=== PATIENT | male | born 1965 | race Caucasian/White ===

== ENCOUNTER 2017-12-08 19:57 | Emergency (ER) | payer OTHER ==
[~2017-12-08] VITALS: Ht 167.6 cm; Wt 90.6 kg
[2017-12-08 20:05] VITALS: BP 150/92; PULSE 97; RESP 20; TEMP 98.7; O2SAT 98
[2017-12-08] MEDS ORDERED: NORT10CA PO (20:17)
[2017-12-08] MEDS ORDERED: SUMA85TA PO (20:17)
[2017-12-08] MEDS ORDERED: LISI-515 PO (20:17)
[2017-12-08] MEDS ORDERED: HYDR-4361 (20:17)
[2017-12-08] MEDS ORDERED: SODIUM CHLOR 0.9% 1000 ML INJ 1,000 ML IV ONE (20:23)
--- NOTE | 2017-12-08 20:23 | PD ---
HPI Chief Complaint: Dizziness Time Seen by Provider: 20:19 Travel History International Travel<30 days: No Contact w/Intl Traveler<30days: No Traveled to known affect area: No History of Present Illness HPI The patient is a 52-year-old male that complains of vertigo intermittently for a week. He has frequent headaches and has a headache in the occipital area of gradual onset. He denies any focal neurologic change. He does have tingling in his hands and arms. He was vomiting today and associated with the vertigo. He denies any ear pain or tinnitus. PFSH Past Medical History Hypertension: Yes Past Surgical History Abdominal Surgery: Yes (HERNIA) Appendectomy: Yes Other Surgery: Yes (BACK AND NECK) Social History Alcohol Use: No Tobacco Use: No Substance Use: No Allergies-Medications (Allergen,Severity, Reaction): Coded Allergies: No Known Allergies (Unverified , 12/08/17) Reported Meds & Prescriptions Reported Meds & Active Scripts Active Reported Hydrocodone-Acetamin 10-300 mg (Hydrocodone/Acetaminophen) 10 Mg-300 Mg Tablet Treximet (Sumatriptan-Naproxen) 85-500 Mg Tab 1 Tab PO ONCE PRN May take a second dose after 2 hours if needed. Maximum 2 tabs in 24 hour period. Nortriptyline (Nortriptyline HCl) 10 Mg Cap 10 Mg PO HS Lisinopril 20 Mg Tab 20 Mg PO DAILY Review of Systems Except as stated in HPI: all other systems reviewed are Neg Physical Exam Narrative GENERAL: The patient is alert, oriented 3 in moderate distress with his vertigo. He holds his head completely still. His blood pressure is 150/92 but the rest the vital signs are normal. He does appear to be somewhat anxious and hyperventilating. SKIN: Focused skin assessment cool and diaphoretic. HEAD: Atraumatic. Normocephalic. EYES: Pupils equal and round. No scleral icterus. No injection or drainage. ENT: No nasal bleeding or discharge. Mucous membranes pink and moist. The right tympanic membrane is not seen due to wax in the canal. The left tympanic membrane and canal are normal. Lateral nystagmus is present with any head movement. NECK: Trachea midline. No JVD. There is no meningismus present. CARDIOVASCULAR: Regular rate and rhythm. No murmur appreciated. RESPIRATORY: No accessory muscle use. Clear to auscultation. Breath sounds equal bilaterally. GASTROINTESTINAL: Abdomen soft, non-tender, nondistended. Hepatic and splenic margins not palpable. MUSCULOSKELETAL: No obvious deformities. No clubbing. No cyanosis. No edema. NEUROLOGICAL: Awake and alert. No obvious cranial nerve deficits. Motor grossly within normal limits. Normal speech. PSYCHIATRIC: Appropriate mood and affect; insight and judgment normal. Data Data Last Documented VS Vital Signs Date Time Temp Pulse Resp B/P (MAP) Pulse Ox O2 Delivery O2 Flow Rate FiO2 12/08/17 21:31 99 16 150/89 (109) 94 Nasal Cannula 4.00 12/08/17 20:05 98.7 Orders Orders Lorazepam Inj (Ativan Inj) (12/08/17 20:30) Prochlorperazine Inj (Compazine Inj) (12/08/17 20:30) Electrocardiogram (12/08/17 20:23) Complete Blood Count With Diff (12/08/17 20:23) Comprehensive Metabolic Panel (12/08/17 20:23) Magnesium (Mg) (12/08/17 20:23) Troponin I (12/08/17 20:23) Urinalysis - C+S If Indicated (12/08/17 20:23) Ecg Monitoring (12/08/17 20:23) Iv Access Insert/Monitor (12/08/17 20:23) Oximetry (12/08/17 20:23) Sodium Chloride 0.9% Flush (Ns Flush) (12/08/17 20:30) Sodium Chlor 0.9% 1000 Ml Inj (Ns 1000 M (12/08/17 20:23) Potassium Chloride (Kcl) (12/08/17 21:30) Ns + Kcl 20 Meq Inj (Ns + Kcl 20 Meq Inj (12/08/17 21:30) Labs Laboratory Tests Test 12/08/17 20:27 White Blood Count 13.2 TH/MM3 Red Blood Count 5.53 MIL/MM3 Hemoglobin 15.9 GM/DL Hematocrit 46.2 % Mean Corpuscular Volume 83.4 FL Mean Corpuscular Hemoglobin 28.7 PG Mean Corpuscular Hemoglobin Concent 34.5 % Red Cell Distribution Width 12.8 % Platelet Count 370 TH/MM3 Mean Platelet Volume 8.8 FL Neutrophils (%) (Auto) 35.1 % Lymphocytes (%) (Auto) 52.2 % Monocytes (%) (Auto) 7.4 % Eosinophils (%) (Auto) 4.8 % Basophils (%) (Auto) 0.5 % Neutrophils # (Auto) 4.6 TH/MM3 Lymphocytes # (Auto) 6.9 TH/MM3 Monocytes # (Auto) 1.0 TH/MM3 Eosinophils # (Auto) 0.6 TH/MM3 Basophils # (Auto) 0.1 TH/MM3 CBC Comment AUTO DIFF Differential Total Cells Counted 100 Neutrophils % (Manual) 37 % Lymphocytes % 57 % Monocytes % 3 % Eosinophils % 3 % Neutrophils # (Manual) 4.9 TH/MM3 Differential Comment FINAL DIFF MANUAL Platelet Estimate NORMAL Platelet Morphology Comment CLUMPED Red Cell Morphology Comment NORMAL Blood Urea Nitrogen 16 MG/DL Creatinine 1.40 MG/DL Random Glucose 127 MG/DL Total Protein 7.7 GM/DL Albumin 4.3 GM/DL Calcium Level 9.3 MG/DL Magnesium Level 2.5 MG/DL Alkaline Phosphatase 44 U/L Aspartate Amino Transf (AST/SGOT) 23 U/L Alanine Aminotransferase (ALT/SGPT) 26 U/L Total Bilirubin 0.9 MG/DL Sodium Level 136 MEQ/L Potassium Level 2.8 MEQ/L Chloride Level 101 MEQ/L Carbon Dioxide Level 21.3 MEQ/L Anion Gap 14 MEQ/L Estimat Glomerular Filtration Rate 53 ML/MIN Troponin I LESS THAN 0.02 NG/ML MDM Medical Decision Making Medical Screen Exam Complete: Yes Emergency Medical Condition: Yes Medical Record Reviewed: Yes Interpretation(s) The EKG shows sinus rhythm with rate of 89 and is completely normal. The complete metabolic profile shows a potassium of 2.8, creatinine 1.4 with a GFR of 53 but is otherwise normal. The troponin I is normal. The CBC shows a white count 12,200 with 52% lymphs but is otherwise unremarkable. Differential Diagnosis Benign positional vertigo, labyrinthitis, electrolyte disorder, hypo-/ hyperglycemia Narrative Course The patient does not have any symptoms of a virus as an viral labyrinthitis. He appears to have benign positional vertigo. He does have a hypokalemia and will be given potassium supplement. He is also given prescriptions for Zofran, meclizine. He should follow-up with a primary care physician next week. He should avoid driving. Diagnosis Primary Impression: Benign positional vertigo Additional Impression: Hypokalemia Additional Instructions: As we discussed, avoid driving as long as you have the vertigo. It will take approximately 1 week for the Potassium to replace itself. You can also speed this up by eating fruits, fruit juices. The meclizine is one tablet every 6-8 hours as needed for dizziness and the Zofran is one tablet every 6 hours as needed for nausea. Follow-up next week with a primary care physician. Scripts Ondansetron (Zofran) 4 Mg Tab 4 MG PO Q6HR Y for NAUSEA OR VOMITING, #30 TAB 0 Refills Prov: Goyo Reilly MD 12/08/17 Meclizine (Meclizine) 25 Mg Tab 25 MG PO TID Y for VERTIGO, #30 TAB 0 Refills Prov: Goyo Reilly MD 12/08/17 Potassium Chloride ER (K-Tab) 20 Meq Tab 20 MEQ PO DAILY for Electrolyte Replacement, #30 TAB 0 Refills Prov: Goyo Reilly MD 12/08/17 Disposition: 01 DISCHARGE HOME Condition: Stable Goyo Reilly MD Dec 08, 2017 20:23
[2017-12-08] MEDS ORDERED: LORazepam 2 MG/ML VIAL IV PUSH ONE (20:30)
[2017-12-08] MEDS ORDERED: PROCHLORPERAZINE INJ 10 MG/2 ML VIAL IV PUSH ONE (20:30)
[2017-12-08] MEDS ORDERED: SODIUM CHLORIDE 0.9% FLUSH 10 ML FLUSH IVF PRN (20:30)
[2017-12-08 20:37] VITALS: O2SAT 100
[2017-12-08 20:38] VITALS: BP 165/85; PULSE 85; RESP 16; O2SAT 100
[2017-12-08 20:39] LABS: AUTOMATED NEUTROPHIL # 4.6 TH/MM3 (1.8-7.7); BASOPHIL # 0.1 TH/MM3 (0-0.2); BASOPHIL % 0.5 % (0.0-2.0); EOSINOPHIL # 0.6 TH/MM3 (0-0.4); EOSINOPHIL % 4.8 % (0.0-4.0); HEMATOCRIT 46.2 % (39.0-51.0); HEMOGLOBIN 15.9 GM/DL (13.0-17.0); LYMPH % 52.2 % (9.0-44.0); LYMPHOCYTE # 6.9 TH/MM3 (1.0-4.8); MEAN CELL VOLUME 83.4 FL (80.0-100.0); MEAN CORPUSCULAR HEMOGLOBIN 28.7 PG (27.0-34.0); MEAN CORPUSCULAR HGB CONC 34.5 % (32.0-36.0); MEAN PLATELET VOLUME 8.8 FL (7.0-11.0); MONO % 7.4 % (0.0-8.0); NEUT % 35.1 % (16.0-70.0); PLATELET COUNT 370 TH/MM3 (150-450); RED BLOOD COUNT 5.53 MIL/MM3 (4.50-5.90); RED CELL DISTRIBUTION WIDTH 12.8 % (11.6-17.2); WHITE BLOOD COUNT 13.2 TH/MM3 (4.0-11.0)
[2017-12-08 21:18] LABS: ALBUMIN 4.3 GM/DL (3.4-5.0); ALKALINE PHOSPHATASE 44 U/L (45-117); ALT (GPT) 26 U/L (12-78); AST (GOT) 23 U/L (15-37); BICARBONATE 21.3 MEQ/L (21.0-32.0); BLOOD UREA NITROGEN 16 MG/DL (7-18); CALCIUM 9.3 MG/DL (8.5-10.1); CHLORIDE 101 MEQ/L (98-107); GLOMERULAR FILTRATION RATE 53 ML/MIN (>89); GLUCOSE,RANDOM 127 MG/DL (74-106); MAGNESIUM 2.5 MG/DL (1.5-2.5); SODIUM (NA) 136 MEQ/L (136-145); TOTAL BILIRUBIN ADULT 0.9 MG/DL (0.2-1.0); TOTAL PROTEIN 7.7 GM/DL (6.4-8.2); TROPONIN I LESS THAN 0.02 NG/ML (0.02-0.05)
[2017-12-08 21:29] LABS: LYMPHOCYTES 57 % (9-44); MONOCYTES 3 % (0-8); NEUTROPHIL # MANUAL DIFF 4.9 TH/MM3 (1.8-7.7); POLYS (SEG NEUTROPHILS) 37 % (16-70)
[2017-12-08] MEDS ORDERED: NS + KCL 20 MEQ INJ 1,000 ML IV SCH (21:30)
[2017-12-08] MEDS ORDERED: POTASSIUM CHLORIDE 20 MEQ CONTROLLED RELEASE TAB PO ONE (21:30)
[2017-12-08 21:31] VITALS: BP 150/89; PULSE 99; RESP 16; O2SAT 94
[2017-12-08] MEDS ORDERED: POTA1TAB4 PO (22:04)
[2017-12-08] MEDS ORDERED: MECL-62 PO (22:04)
[2017-12-08] MEDS ORDERED: ZOFR4TAB PO (22:04)
[2017-12-08 23:25] VITALS: BP 154/75; TEMP 98.7
--- NOTE | 2017-12-09 00:36 | EKG ---
Date Performed: 12/08/2017 Time Performed: 20:14:48 PTAGE: 52 years EKG: Sinus rhythm NORMAL ECG NO PREVIOUS TRACING DOCTOR: Toni Barrera Interpretating Date/Time 12/09/2017 00:34:27
== END 2017-12-08 22:42 | disposition home or self-care (01) ==
LOC: PHED 19:57 → EDBD 19:57 → PHED 22:42
DX: H81.10 Benign paroxysmal vertigo, unspecified ear (principal); E87.6 Hypokalemia; I10 Essential (primary) hypertension
CPT/HCPCS: 80053; 83735; 84484; 85007; 85027; 93005; 96361; 96374; 96375; 99284; J0780; J2060; J3480; J7030